=== PATIENT | male | born 1985 | race Caucasian/White ===

== ENCOUNTER 2018-05-16 11:28 | Inpatient (IN) | payer OTHER ==
[2018-05-16] MEDS: SOD CHLORIDE 0.9% 1,000 ML IV (12:22)
[2018-05-16 12:31] LABS: ADD MAN DIFF? NO
[2018-05-16 12:35] LABS: BASOPHILS % 0.4 % (0.0-2.0); EOSINOPHILS # 0.1 10^3/ul (0.0-0.5); EOSINOPHILS % 0.9 % (0.0-7.0); HEMATOCRIT 42.5 % (42.0-52.0); HEMOGLOBIN 14.6 g/dl (14.0-18.0); LYMPHOCYTES # 1.8 10^3/ul (0.8-2.9); LYMPHOCYTES % 26.8 % (15.0-51.0); MEAN CORPUSCULAR HEMOGLOBIN 31.9 pg (29.0-33.0); MEAN CORPUSCULAR HGB CONC 34.4 g/dl (32.0-37.0); MEAN PLATELET VOLUME 10.8 fl (7.4-10.4); MONOCYTE # 0.4 10^3/ul (0.3-0.9); MONOCYTES % 5.2 % (0.0-11.0); NEUTROPHIL # 4.5 10^3/ul (1.6-7.5); NUCLEATED RED BLOOD CELLS% 0.3 /100WBC (0.0-0.0); PLATELET COUNT 105 10^3/UL (140-415); POSITIVE DIFF @See below; RED BLOOD COUNT 4.57 10^6/ul (4.70-6.10); RED CELL DISTRIBUTION WIDTH 13.8 % (11.5-14.5)
[2018-05-16 12:35] LABS: WHITE BLOOD COUNT 6.8 10^3/ul (4.8-10.8)
[2018-05-16 12:43] LABS: ADD UMIC YES; UR ASCORBIC ACID 40 mg/dL (NEGATIVE); UR BILIRUBIN (Dip) 2+ mg/dL (NEGATIVE); UR BLOOD (Dip) NEGATIVE (NEGATIVE); UR CLARITY CLEAR (CLEAR); UR COLOR AMBER (YELLOW); UR GLUCOSE (Dip) NEGATIVE (NEGATIVE); UR KETONES (Dip) NEGATIVE (NEGATIVE); UR LEUKOCYTE ESTERASE (Dip) NEGATIVE Leu/ul (NEGATIVE); UR MUCUS MANY /HPF (NONE SEEN); UR NITRITE (Dip) NEGATIVE (NEGATIVE); UR RBC 1 /HPF (0-5); UR SPECIFIC GRAVITY (Dip) 1.033 (1.003-1.030); UR TOTAL PROTEIN (Dip) 2+ mg/dl (NEGATIVE); UR UROBILINOGEN (Dip) 2+ mg/dL (NEGATIVE); UR WBC 4 /HPF (0-5)
[2018-05-16 12:54] LABS: CREATINE KINASE 142 IU/L (23-200)
[2018-05-16 12:54] LABS: ALANINE AMINOTRANSFERASE 267 IU/L (13-69); ALBUMIN 3.7 g/dl (3.3-4.9); ALBUMIN/GLOBULIN RATIO 0.84; ALKALINE PHOSPHATASE 472 IU/L (42-121); ANION GAP 14 (8-16); ASPARTATE AMINO TRANSFERASE 458 IU/L (15-46); BILIRUBIN,INDIRECT 0.9 mg/dl (0-1.1); BILIRUBIN,TOTAL 2.5 mg/dl (0.2-1.3); BLOOD UREA NITROGEN 14 mg/dl (7-20); CALCIUM 8.8 mg/dl (8.4-10.2); CARBON DIOXIDE 22 mmol/L (21-31); CHLORIDE 109 mmol/L (97-110); CREATININE 0.64 mg/dl (0.61-1.24); GLUCOSE 150 mg/dl (70-220); LIPASE 505 U/L (23-300); SODIUM 141 mmol/L (135-144); TOTAL PROTEIN 8.1 g/dl (6.1-8.1)
[2018-05-16 13:01] LABS: HAAIG REFLEX REFLEX FILED
[2018-05-16 13:19] LABS: ETHANOL < 10.0 mg/dl
[2018-05-16] MEDS ORDERED: ACETAMINOPHEN 325 MG TAB PO (14:00)
[2018-05-16] MEDS ORDERED: ONDANSETRON 4 MG INJ IV ×2 (14:00→15:00)
[2018-05-16 14:01] LABS: HEPATITIS B SURFACE ANTIGEN NEGATIVE (NEGATIVE)
[2018-05-16] MEDS: KETOROLAC 15 MG INJ IV (14:03)
[2018-05-16 14:08] LABS: AMPHETAMINE/METHAMPHETAMINE Negative (NEGATIVE); BARBITURATES Negative (NEGATIVE); BENZODIAZEPINES Negative (NEGATIVE); CANNABINOIDS Negative (NEGATIVE); COCAINE Negative (NEGATIVE); OPIATES Negative (NEGATIVE)
[2018-05-16 14:19] LABS: HEPATITIS B CORE ANTIBODY NEGATIVE (NEGATIVE); HEPATITIS C VIRAL ANTIBODY NEGATIVE (NEGATIVE)
[2018-05-16] MEDS ORDERED: NACL 0.9% 3 ML SYG IV (15:00)
[2018-05-16 15:30] LABS: INR 0.88; PT RATIO 0.9
[2018-05-16 15:34] LABS: CHOL/HDL RATIO 10.8 RATIO; HDL CHOLESTEROL 26 mg/dl (28-63)
[2018-05-16 15:34] LABS: CHOLESTEROL 283 mg/dl (100-200)
[2018-05-16 16:09] LABS: TRIGLYCERIDES 2415 mg/dl (0-149)
[2018-05-16] MEDS: DEXTROSE 5%-0.45% NACL 1,000 ML IV (16:45)
[2018-05-16 17:03] LABS: ALKALINE PHOSPHATASE 414 IU/L (42-121)
[2018-05-16 17:54] LABS: ACETAMINOPHEN < 10.0 ug/ml (10.0-30.0)
[2018-05-16] MEDS: ZOLPIDEM 5 MG TAB PO (21:16)
[2018-05-17] MEDS: DEXTROSE 5%-0.45% NACL 1,000 ML IV ×2 (04:09→09:59)
[2018-05-17 05:49] LABS: ADD MAN DIFF? NO
[2018-05-17 05:52] LABS: BASOPHILS % 0.5 % (0.0-2.0); EOSINOPHILS # 0.1 10^3/ul (0.0-0.5); EOSINOPHILS % 1.6 % (0.0-7.0); HEMATOCRIT 42.4 % (42.0-52.0); HEMOGLOBIN 13.7 g/dl (14.0-18.0); LYMPHOCYTES # 2.2 10^3/ul (0.8-2.9); LYMPHOCYTES % 36.2 % (15.0-51.0); MEAN CORPUSCULAR HEMOGLOBIN 30.5 pg (29.0-33.0); MEAN CORPUSCULAR HGB CONC 32.3 g/dl (32.0-37.0); MEAN CORPUSCULAR VOLUME 94.4 fl (82.0-101.0); MONOCYTE # 0.4 10^3/ul (0.3-0.9); MONOCYTES % 5.9 % (0.0-11.0); NEUTROPHIL # 3.3 10^3/ul (1.6-7.5); NEUTROPHILS % 54.6 % (39.0-77.0); PLATELET COUNT 120 10^3/UL (140-415); RED BLOOD COUNT 4.49 10^6/ul (4.70-6.10); RED CELL DISTRIBUTION WIDTH 14.2 % (11.5-14.5)
[2018-05-17 05:52] LABS: WHITE BLOOD COUNT 6.1 10^3/ul (4.8-10.8)
[2018-05-17 06:14] LABS: ALANINE AMINOTRANSFERASE 224 IU/L (13-69); ALBUMIN 3.5 g/dl (3.3-4.9); ALBUMIN/GLOBULIN RATIO 0.89; ALKALINE PHOSPHATASE 369 IU/L (42-121); ANION GAP 11 (8-16); ASPARTATE AMINO TRANSFERASE 264 IU/L (15-46); BILIRUBIN,TOTAL 1.2 mg/dl (0.2-1.3); BLOOD UREA NITROGEN 6 mg/dl (7-20); CALCIUM 8.8 mg/dl (8.4-10.2); CARBON DIOXIDE 29 mmol/L (21-31); CHLORIDE 103 mmol/L (97-110); CREATININE 0.55 mg/dl (0.61-1.24); GLUCOSE 111 mg/dl (70-220); MAGNESIUM 1.9 mg/dl (1.7-2.5); POTASSIUM 3.5 mmol/L (3.5-5.1); SODIUM 139 mmol/L (135-144); TOTAL PROTEIN 7.4 g/dl (6.1-8.1)
[2018-05-17 06:42] LABS: HEPATITIS B SURFACE ANTIGEN NEGATIVE (NEGATIVE)
[2018-05-17 07:00] LABS: HEPATITIS C VIRAL ANTIBODY NEGATIVE (NEGATIVE)
[2018-05-17 07:11] LABS: LIPASE 389 U/L (23-300)
[2018-05-17] MEDS: IBUPROFEN 600 MG TAB PO (09:58)
[2018-05-17] MEDS: traZODone 50 MG TAB PO (20:21)
[2018-05-17] MEDS: ATORVASTATIN 80 MG TAB PO (20:21)
[2018-05-18] MEDS: DEXTROSE 5%-0.45% NACL 1,000 ML IV ×2 (00:15→13:44)
[2018-05-18 05:48] LABS: ADD MAN DIFF? NO
[2018-05-18 05:52] LABS: BASOPHILS % 0.5 % (0.0-2.0); EOSINOPHILS # 0.1 10^3/ul (0.0-0.5); EOSINOPHILS % 1.3 % (0.0-7.0); HEMATOCRIT 40.5 % (42.0-52.0); HEMOGLOBIN 13.1 g/dl (14.0-18.0); LYMPHOCYTES % 33.3 % (15.0-51.0); MEAN CORPUSCULAR HEMOGLOBIN 30.3 pg (29.0-33.0); MEAN CORPUSCULAR HGB CONC 32.3 g/dl (32.0-37.0); MEAN CORPUSCULAR VOLUME 93.5 fl (82.0-101.0); MEAN PLATELET VOLUME 11.3 fl (7.4-10.4); MONOCYTE # 0.6 10^3/ul (0.3-0.9); MONOCYTES % 9.7 % (0.0-11.0); NEUTROPHIL # 3.2 10^3/ul (1.6-7.5); NEUTROPHILS % 53.2 % (39.0-77.0); PLATELET COUNT 164 10^3/UL (140-415); RED BLOOD COUNT 4.33 10^6/ul (4.70-6.10); RED CELL DISTRIBUTION WIDTH 14.5 % (11.5-14.5)
[2018-05-18 06:31] LABS: ALANINE AMINOTRANSFERASE 226 IU/L (13-69); ALBUMIN 3.4 g/dl (3.3-4.9); ALBUMIN/GLOBULIN RATIO 0.94; ALKALINE PHOSPHATASE 303 IU/L (42-121); ANION GAP 10 (8-16); ASPARTATE AMINO TRANSFERASE 267 IU/L (15-46); BLOOD UREA NITROGEN 8 mg/dl (7-20); CALCIUM 8.6 mg/dl (8.4-10.2); CARBON DIOXIDE 28 mmol/L (21-31); CHLORIDE 105 mmol/L (97-110); CREATININE 0.56 mg/dl (0.61-1.24); GLUCOSE 116 mg/dl (70-220); MAGNESIUM 2.1 mg/dl (1.7-2.5); SODIUM 139 mmol/L (135-144)
[2018-05-18] MEDS: GEMFIBROZIL 600 MG TAB PO ×2 (13:44→20:51)
[2018-05-18 13:54] LABS: LIPASE 509 U/L (23-300)
[2018-05-18] MEDS: SOD CHLORIDE 0.45% 1,000 ML IV (16:30)
[2018-05-18] MEDS: traZODone 50 MG TAB PO (20:51)
[2018-05-18] MEDS: ATORVASTATIN 80 MG TAB PO (20:51)
[2018-05-19] MEDS: DEXTROSE 5%-0.45% NACL 1,000 ML IV ×2 (03:13→09:03)
[2018-05-19 05:37] LABS: ADD MAN DIFF? NO
[2018-05-19 05:45] LABS: BASOPHIL # 0.1 10^3/ul (0.0-0.1); EOSINOPHILS # 0.1 10^3/ul (0.0-0.5); EOSINOPHILS % 1.2 % (0.0-7.0); HEMATOCRIT 39.8 % (42.0-52.0); HEMOGLOBIN 12.8 g/dl (14.0-18.0); LYMPHOCYTES # 1.9 10^3/ul (0.8-2.9); LYMPHOCYTES % 31.7 % (15.0-51.0); MEAN CORPUSCULAR HEMOGLOBIN 30.6 pg (29.0-33.0); MEAN CORPUSCULAR HGB CONC 32.2 g/dl (32.0-37.0); MEAN CORPUSCULAR VOLUME 95.2 fl (82.0-101.0); MEAN PLATELET VOLUME 10.4 fl (7.4-10.4); MONOCYTE # 0.7 10^3/ul (0.3-0.9); MONOCYTES % 11.4 % (0.0-11.0); NEUTROPHIL # 3.1 10^3/ul (1.6-7.5); NEUTROPHILS % 52.5 % (39.0-77.0); NUCLEATED RED BLOOD CELLS% 0.3 /100WBC (0.0-0.0); PLATELET COUNT 198 10^3/UL (140-415); RED BLOOD COUNT 4.18 10^6/ul (4.70-6.10); RED CELL DISTRIBUTION WIDTH 14.6 % (11.5-14.5)
[2018-05-19 06:07] LABS: TRIGLYCERIDES 297 mg/dl (0-149)
[2018-05-19 06:07] LABS: LIPASE 434 U/L (23-300)
[2018-05-19 06:27] LABS: ALANINE AMINOTRANSFERASE 218 IU/L (13-69); ALBUMIN 3.5 g/dl (3.3-4.9); ALBUMIN/GLOBULIN RATIO 1.02; ALKALINE PHOSPHATASE 273 IU/L (42-121); ANION GAP 10 (8-16); ASPARTATE AMINO TRANSFERASE 214 IU/L (15-46); BILIRUBIN,INDIRECT 0.9 mg/dl (0-1.1); BILIRUBIN,TOTAL 0.9 mg/dl (0.2-1.3); BLOOD UREA NITROGEN 7 mg/dl (7-20); CALCIUM 8.7 mg/dl (8.4-10.2); CARBON DIOXIDE 25 mmol/L (21-31); CHLORIDE 108 mmol/L (97-110); GLUCOSE 111 mg/dl (70-220); MAGNESIUM 2.1 mg/dl (1.7-2.5); POTASSIUM 3.7 mmol/L (3.5-5.1); SODIUM 139 mmol/L (135-144); TOTAL PROTEIN 6.9 g/dl (6.1-8.1)
[2018-05-19] MEDS: GEMFIBROZIL 600 MG TAB PO (09:03)
[2018-05-19] MEDS ORDERED: FISH OIL 1,000 MG CAP PO (21:00)
[2018-06-01 14:04] LABS: ANA PATTERN SPECKLED; ANA SCREEN POSITIVE (NEGATIVE); MITOCHONDRIAL TB NEGATIVE (NEGATIVE); SMOOTH MUSCLE AB SCREEN NEGATIVE (NEGATIVE)
== END 2018-05-19 18:05 | disposition home or self-care (01) | DRG 441 ==
LOC: FTE 11:28 → MS2 13:43
DX: K72.00 Acute and subacute hepatic failure without coma (principal); K85.90 Acute pancreatitis without necrosis or infection, unspecified; D69.59 Other secondary thrombocytopenia; E78.1 Pure hyperglyceridemia; K76.0 Fatty (change of) liver, not elsewhere classified
CPT/HCPCS: 36415; 74176; 74181; 76705; 80053; 80061; 80307; 81001; 82550; 83690; 83735; 84075; 84478; 85025; 85610; 86038; 86255; 86704; 86709; 86803; 86880; 86885; 86900; 86901; 87340; 93005; 99285-25